=== PATIENT | female | born 1995 | race African-American/Black ===

== ENCOUNTER 2017-01-15 09:06 | Emergency (ER) | payer BC ==
[~2017-01-15] VITALS: Ht 172.7 cm; Wt 90.7 kg
[2017-01-15 09:21] VITALS: BP 110/76
--- NOTE | 2017-01-15 09:26 | PHYS DOC ---
Past Medical History Past Medical History: Asthma Additional Past Medical Histor: VON WILLIBEBRAND SYNDROME Past Surgical History: Knee Replacement Alcohol Use: None Drug Use: None Adult General Chief Complaint Chief Complaint: FLANK PAIN HPI HPI Patient is a 21 year old female presents to the emergency department with complaints of bilateral flank pain and low abdominal discomfort, urgency and frequency with urination. Reports the symptoms for 12 hours. She reports no fever, no nausea, no vomiting. She denies hematuria. Vaginal discharge or pelvic pain. She reports her last normal menstrual period was 3 weeks ago with no risk of STD. Review of Systems Review of Systems Constitutional: Denies fever or chills [] Eyes: Denies change in visual acuity, redness, or eye pain [] HENT: Denies nasal congestion or sore throat [] Respiratory: Denies cough or shortness of breath [] Cardiovascular: No additional information not addressed in HPI [] GI: Denies abdominal pain, nausea, vomiting, bloody stools or diarrhea [] : Dysuria without hematuria Musculoskeletal: Bilateral flank pain Integument: Denies rash or skin lesions [] Neurologic: Denies headache, focal weakness or sensory changes [] Endocrine: Denies polyuria or polydipsia [] Allergies Allergies Allergies Coded Allergies Type Severity Reaction Last Updated Verified No Known Drug Allergies 12/09/15 No Physical Exam Physical Exam Constitutional: Well developed, well nourished, no acute distress, non-toxic appearance. [] HENT: Normocephalic, atraumatic, bilateral external ears normal, oropharynx moist, no oral exudates, nose normal. [] Eyes: PERRLA, EOMI, conjunctiva normal, no discharge. [] Neck: Normal range of motion, no tenderness, supple, no stridor. [] Cardiovascular:Heart rate regular rhythm, no murmur [] Lungs & Thorax: Bilateral breath sounds clear to auscultation [] Abdomen: Bowel sounds normal, soft, suprapubic tenderness, no masses, no pulsatile masses. [] Skin: Warm, dry, no erythema, no rash. [] Back: No tenderness, bilateral CVA tenderness Neurologic: Alert and oriented X 3, normal motor function] Psychologic: Affect normal, judgement normal, mood normal. [] Current Patient Data Vital Signs Vital Signs Date Time Temp Pulse Resp B/P (MAP) Pulse Ox O2 Delivery O2 Flow Rate FiO2 01/15/17 09:21 98.4 90 20 110/76 (87) 97 Room Air 98.4 Lab Values Laboratory Tests Test 01/15/17 09:15 Urine Collection Type Unknown Urine Color Yellow Urine Clarity Cloudy Urine pH 6.0 Urine Specific Brohard 1.015 Urine Protein Negative mg/dL (NEG-TRACE) Urine Glucose (UA) Negative mg/dL (NEG) Urine Ketones (Stick) Negative mg/dL (NEG) Urine Blood Negative (NEG) Urine Nitrite Negative (NEG) Urine Bilirubin Negative (NEG) Urine Urobilinogen Dipstick 0.2 mg/dL (0.2 mg/dL) Urine Leukocyte Esterase Negative (NEG) Urine RBC 0 /HPF (0-2) Urine WBC Occ /HPF (0-4) Urine Squamous Epithelial Cells Many /LPF Urine Bacteria Moderate /HPF (0-FEW) Urine Mucus Marked /LPF EKG EKG [] Radiology/Procedures Radiology/Procedures [] Course & Med Decision Making Course & Med Decision Making Pertinent Labs and Imaging studies reviewed. (See chart for details) [] Dragon Disclaimer Dragon Disclaimer This electronic medical record was generated, in whole or in part, using a voice recognition dictation system. Departure Departure Impression: Primary Impression: UTI (urinary tract infection) Disposition: 01 HOME, SELF-CARE Condition: STABLE Referrals: SARANYA LOWE MD (PCP) Patient Instructions: Urinary Tract Infection Scripts Nitrofurantoin Monohyd/M-Cryst (MACROBID 100 MG CAPSULE) 100 Mg Capsule 1 CAP PO BID, #20 CAP Prov: ANN ZAMBRANO APRN 01/15/17 ANN ZAMBRANO APRN Jan 15, 2017 09:26
[2017-01-15 09:28] LABS: BILIRUBIN,URINE NEGATIVE (NEG); GLUCOSE,URINE NEGATIVE (NEG); NITRITE,URINE NEGATIVE (NEG); PROTEIN,URINE NEGATIVE (NEG-TRACE); UROBILINOGEN,URINE 0.2 mg/dL (0.2 mg/dL)
[2017-01-15 09:42] LABS: BACTERIA,URINE MODERATE /HPF (0-FEW); RBC,URINE 0 /HPF (0-2); SQUAMOUS EPITHELIAL CELL,UR MANY /LPF; WBC,URINE OCC /HPF (0-4)
[2017-01-15] MEDS ORDERED: NITR100C62 PO (09:46)
== END 2017-01-15 10:01 | disposition home or self-care (01) ==
LOC: ER 09:06
DX: N39.0 Urinary tract infection, site not specified (principal); J45.909 Unspecified asthma, uncomplicated; D68.0 Von Willebrand disease; Z96.659 Presence of unspecified artificial knee joint
CPT/HCPCS: 81001; 81025; 87086; 99284

== ENCOUNTER 2017-02-16 20:43 | Emergency (ER) | payer BC ==
[~2017-02-16] VITALS: Ht 170.2 cm; Wt 97.5 kg
[~2017-02-16 20:43] MED LIST: NITR100C62 PO
--- NOTE | 2017-02-16 21:21 | PHYS DOC ---
Past Medical History Past Medical History: Anxiety, Depression Additional Past Medical Histor: VON WILLIBEBRAND SYNDROME, Seasonal Allergies Past Surgical History: Other Additional Past Surgical Histo: Lt knee Alcohol Use: None Drug Use: None Adult General Chief Complaint Chief Complaint: ABDOMINAL PAIN HPI HPI Patient is a 21 year old female who presents with complaint of abdominal pain. Patient states that her symptoms started 2 days ago. Patient states that she started having hematemesis and bloody stools at onset of symptoms. Patient was seen at [facility]. Patient states that she had blood work done but did not have imaging at her stay. Patient states that she was told her labs looked normal and was referred to a GI specialist for outpatient follow-up. Patient states that she saw Dr. Mcadams of gastroenterology yesterday and is scheduled to have a colonoscopy in 3 days. Patient states that suddenly this evening she had very sharp upper abdominal pain. Patient states that she has also been passing black tarry stools. Patient has had no further episodes of hematemesis. Patient currently rates her pain as 8 out of 10. Patient states that the pain localizes in her epigastric area and right upper quadrant. Agent has not taken any medications today for her symptoms. Review of Systems Review of Systems Constitutional: Denies fever or chills [] Eyes: Denies change in visual acuity, redness, or eye pain [] HENT: Denies nasal congestion or sore throat [] Respiratory: Denies cough or shortness of breath [] Cardiovascular: Denies chest pain or edema [] GI: Hematemesis, upper abdominal pain, dark tarry stools [] : Denies dysuria or hematuria [] Musculoskeletal: Denies back pain or joint pain [] Integument: Denies rash or skin lesions [] Neurologic: Denies headache, focal weakness or sensory changes [] Current Medications Current Medications Current Medications Medications (Trade) Dose Ordered Sig/Isacc Start Time Stop Time Status Last Admin Dose Admin Fentanyl Citrate (Fentanyl 2ml Vial) 50 mcg PRN Q15MIN PRN 02/16/17 21:15 02/17/17 21:14 02/16/17 22:48 50 MCG Info (Do NOT chart on this entry -- for MONITORING) 1 each PRN DAILY PRN 02/16/17 22:15 02/18/17 22:14 Iohexol (Omnipaque 350 Mg/ml) 90 ml 1X ONCE 02/16/17 22:30 02/16/17 22:31 DC 02/16/17 22:22 90 ML Ondansetron HCl (Zofran) 4 mg 1X ONCE 02/16/17 21:30 02/16/17 21:31 DC 02/16/17 21:32 4 MG Pantoprazole Sodium (Protonix Vial) 80 mg 1X ONCE 02/16/17 22:00 02/16/17 22:01 DC 02/16/17 21:29 80 MG Sodium Chloride 1,000 ml @ 1,000 mls/hr Q1H 02/16/17 21:30 02/16/17 22:29 DC 02/16/17 21:26 1,000 MLS/HR Allergies Allergies Allergies Coded Allergies Type Severity Reaction Last Updated Verified No Known Drug Allergies 12/09/15 No Physical Exam Physical Exam Constitutional: Alert, afebrile, appears in moderate discomfort. [] HENT: Normocephalic, atraumatic, bilateral external ears normal, oropharynx moist, no oral exudates, nose normal. [] Eyes: PERRLA, EOMI, conjunctiva normal, no discharge. [] Neck: Normal range of motion, no tenderness, supple, no stridor. [] Cardiovascular:Heart rate regular rhythm, no murmur [] Lungs & Thorax: Bilateral breath sounds clear to auscultation [] Abdomen: Bowel sounds normal, soft, epigastric and right upper quadrant tenderness to palpation with guarding, no rebound tenderness, no masses, no pulsatile masses. [] Skin: Warm, dry, no erythema, no rash. [] Back: No tenderness, no CVA tenderness. [] Extremities: No tenderness, no cyanosis, no clubbing, ROM intact, no edema. [] Neurologic: Alert and oriented X 3, normal motor function, normal sensory function, no focal deficits noted. [] Current Patient Data Vital Signs Vital Signs Date Time Temp Pulse Resp B/P (MAP) Pulse Ox O2 Delivery O2 Flow Rate FiO2 02/16/17 23:25 64 16 118/57 (77) 96 Room Air 02/16/17 20:50 98.6 98.6 Lab Values Laboratory Tests Test 02/16/17 20:47 02/16/17 21:20 02/16/17 21:25 Urine Collection Type Unknown Urine Color Jess Urine Clarity Clear Urine pH 6.0 Urine Specific Hope >=1.030 Urine Protein Negative mg/dL (NEG-TRACE) Urine Glucose (UA) Negative mg/dL (NEG) Urine Ketones (Stick) Negative mg/dL (NEG) Urine Blood Negative (NEG) Urine Nitrite Negative (NEG) Urine Bilirubin Small (NEG) Urine Urobilinogen Dipstick 1.0 mg/dL (0.2 mg/dL) Urine Leukocyte Esterase Negative (NEG) Urine RBC 0 /HPF (0-2) Urine WBC 1-4 /HPF (0-4) Urine Squamous Epithelial Cells Mod /LPF Urine Bacteria Few /HPF (0-FEW) Urine Mucus Marked /LPF White Blood Count 12.2 x10^3/uL (4.0-11.0) H Red Blood Count 4.28 x10^6/uL (3.50-5.40) Hemoglobin 12.4 g/dL (12.0-15.5) Hematocrit 36.2 % (36.0-47.0) Mean Corpuscular Volume 84 fL (79-100) Mean Corpuscular Hemoglobin 29 pg (25-35) Mean Corpuscular Hemoglobin Concent 34 g/dL (31-37) Red Cell Distribution Width 13.2 % (11.5-14.5) Platelet Count 185 x10^3/uL (140-400) Neutrophils (%) (Auto) 60 % (31-73) Lymphocytes (%) (Auto) 31 % (24-48) Monocytes (%) (Auto) 9 % (0-9) Eosinophils (%) (Auto) 1 % (0-3) Basophils (%) (Auto) 0 % (0-3) Neutrophils # (Auto) 7.2 x10^3uL (1.8-7.7) Lymphocytes # (Auto) 3.8 x10^3/uL (1.0-4.8) Monocytes # (Auto) 1.0 x10^3/uL (0.0-1.1) Eosinophils # (Auto) 0.1 x10^3/uL (0.0-0.7) Basophils # (Auto) 0.1 x10^3/uL (0.0-0.2) Prothrombin Time 13.1 SEC (11.7-14.0) Prothrombin Time INR 1.1 (0.8-1.1) PTT 28 SEC (24-38) Sodium Level 139 mmol/L (136-145) Potassium Level 3.8 mmol/L (3.5-5.1) Chloride Level 105 mmol/L (98-107) Carbon Dioxide Level 26 mmol/L (21-32) Anion Gap 8 (6-14) Blood Urea Nitrogen 11 mg/dL (7-20) Creatinine 1.0 mg/dL (0.6-1.0) Estimated GFR (Cockcroft-Gault) 83.9 BUN/Creatinine Ratio 11 (6-20) Glucose Level 115 mg/dL (70-99) H Calcium Level 8.9 mg/dL (8.5-10.1) Total Bilirubin 0.3 mg/dL (0.2-1.0) Aspartate Amino Transferase (AST) 27 U/L (15-37) Alanine Aminotransferase (ALT) 32 U/L (14-59) Alkaline Phosphatase 90 U/L (46-116) Total Protein 7.1 g/dL (6.4-8.2) Albumin 3.6 g/dL (3.4-5.0) Albumin/Globulin Ratio 1.0 (1.0-1.7) Lipase 106 U/L (73-393) Stool Occult Blood Negative (NEG) Laboratory Tests 02/16/17 21:20 Laboratory Tests 02/16/17 21:20 EKG EKG Not performed [] Radiology/Procedures Radiology/Procedures [facility] [address] [place] [address] IMAGING REPORT Signed PATIENT: MEGHAN BRODY ACCOUNT: [id number] : 1995 LOCATION: ER AGE: 21 SEX: F EXAM STATUS: REG ER ORD. PHYSICIAN: NENA HAWKINS MD REASON: GI Bleeding, Upper abdominal pain PROCEDURE: CT ANGIOGRAPHY ABD AND PELVIS CTA of the abdomen and pelvis without and with contrast 02/16/2017 CLINICAL HISTORY: Abdominal pain for 2 days with vomiting blood and black tarry stools. History of Von Willebrand disease. TECHNIQUE: Unenhanced contiguous, 3 mm axial sections were obtained through abdomen and pelvis. After the intravenous administration of 90 cc of Omnipaque 350, contiguous, 0.625 mm axial sections were obtained through abdomen and pelvis. Multiplanar 3-D MIP reconstructed images were obtained. One or more of the following individualized dose reduction techniques were utilized for this study: 1. Automated exposure control. 2. Adjustment of the mA and/or kV according to patient size. 3. Use of iterative reconstruction technique. FINDINGS: Images through the lung bases demonstrate minimal dependent subsegmental atelectasis bilaterally. The unenhanced images through the abdomen demonstrate no renal or ureteral calculus. No pathologic calcification is seen. The liver parenchyma has a decreased attenuation consistent with mild fatty infiltration. The spleen, pancreas, adrenal glands and kidneys are within normal limits. The abdominal aorta tapers normally. The gallbladder is contracted. No free fluid or free air is seen within the abdomen. There is no evidence of bowel obstruction. Air and stool is seen throughout the colon. The appendix is well-visualized and is within normal limits. Images through the pelvis demonstrate the urinary bladder distended with urine. A rounded low-attenuation lesion is seen in the right ovary which measures 3 cm in size. This likely represents a right ovarian cyst. A small amount of free fluid is seen within the pelvis. CTA images demonstrate that the abdominal aorta tapers normally. Solitary renal arteries are seen which are within normal limits. The origins of the celiac trunk, superior mesenteric artery and inferior mesenteric artery are within normal limits. The common iliac arteries, external iliac arteries and internal iliac arteries and their branches are within normal limits. No area of stenosis or occlusion is seen. No extravasation of contrast is seen to suggest CT evidence of active bleeding. Minimal S-shaped curvature of the thoracolumbar spine is seen. IMPRESSION: 1. 3 cm probable right ovarian cyst. Small amount of free fluid is seen within the pelvis. 2. No acute abnormality is seen involving the abdomen and pelvis. There is no CT evidence of active GI bleeding. Electronically signed by: Brent Hodges MD (02/16/2017 11:30 PM) [facility] DICTATED and SIGNED BY: BRENT HODGES MD DATE: 02/16/17 [id number] CC: NENA HAWKINS MD; KENNETH BARNEY DO ~ [] Course & Med Decision Making Course & Med Decision Making Pertinent Labs and Imaging studies reviewed. (See chart for details) Patient's labwork unremarkable. No evidence of acute GI bleeding is present on today's visit. The patient's CT scan did not show any acute cause for patient's pain symptoms. The patient was treated with IV fluids, fentanyl, Protonix, and Zofran. On reevaluation, patient states her symptoms have improved at this time. The patient is scheduled to have endoscopy done in 3 days. I recommended that the patient keep this appointment as scheduled. The patient will be provided with prescriptions of [place] and Zofran for symptomatic control as outpatient. Advised return emergency department for any worsening symptoms. Patient voiced understanding and in agreement with treatment plan. Dragon Disclaimer Dragon Disclaimer This electronic medical record was generated, in whole or in part, using a voice recognition dictation system. Departure Departure Impression: Primary Impression: Abdominal pain Disposition: HOME, SELF-CARE Condition: IMPROVED Referrals: KENNETH BARNEY DO (PCP) Patient Instructions: Abdominal Pain (Nonspecific) Additional Instructions: Follow-up with Dr. Mcadams in 3 days as scheduled for endoscopy. Return to the emergency department for any worsening symptoms. Scripts Ondansetron (ZOFRAN ODT) 4 Mg Tab.rapdis 1 TAB SL Q8HRS Y for NAUSEA/VOMITING, #20 TAB Prov: NENA HAWKINS MD 02/16/17 Hydrocodone/Apap 5-325 (NORCO 5-325 TABLET) 1 Each Tablet 1-2 TAB PO Q4-6HRS Y for PAIN, #15 TAB Prov: NENA HAWKINS MD 02/16/17 Problem Qualifiers Primary Impression: Abdominal pain Abdominal location: epigastric Qualified Codes: R10.13 - Epigastric pain NENA HAWKINS MD Feb 16, 2017 21:21
[2017-02-16 21:26] LABS: BILIRUBIN,URINE SMALL (NEG); GLUCOSE,URINE NEGATIVE (NEG); NITRITE,URINE NEGATIVE (NEG); PROTEIN,URINE NEGATIVE (NEG-TRACE)
[2017-02-16 21:27] LABS: BASO # 0.1 x10^3/uL (0.0-0.2); BASO % 0 % (0-3); EOS % 1 % (0-3); HEMATOCRIT 36.2 % (36.0-47.0); HEMOGLOBIN 12.4 g/dL (12.0-15.5); LYMPH # 3.8 x10^3/uL (1.0-4.8); LYMPH % 31 % (24-48); MEAN CORPUSCULAR HEMOGLOBIN 29 pg (25-35); MEAN CORPUSCULAR HGB CONC 34 g/dL (31-37); MEAN CORPUSCULAR VOLUME 84 fL (79-100); MONO % 9 % (0-9); NEUT % 60 % (31-73); PLATELET COUNT 185 x10^3/uL (140-400); RED BLOOD COUNT 4.28 x10^6/uL (3.50-5.40); RED CELL DISTRIBUTION WIDTH 13.2 % (11.5-14.5); WHITE BLOOD COUNT 12.2 x10^3/uL (4.0-11.0)
[2017-02-16] MEDS ORDERED: ONDANSETRON PF 4 MG/2 ML VIAL. IV ONE (21:30)
[2017-02-16] MEDS ORDERED: IV NORMAL SALINE 1000ML BAG 1,000 ML IV SCH (21:30)
[2017-02-16] MEDS: fentaNYL PF VIAL 100 MCG/2 ML VIAL IV PRN ×2 (21:33→22:48)
[2017-02-16 21:40] LABS: CALCIUM 8.9 mg/dL (8.5-10.1); GFR 83.9; POTASSIUM 3.8 mmol/L (3.5-5.1)
[2017-02-16 21:44] LABS: BACTERIA,URINE FEW /HPF (0-FEW); RBC,URINE 0 /HPF (0-2); SQUAMOUS EPITHELIAL CELL,UR MOD /LPF
[2017-02-16 21:46] LABS: ALBUMIN 3.6 g/dL (3.4-5.0); TOTAL BILIRUBIN 0.3 mg/dL (0.2-1.0); TOTAL PROTEIN 7.1 g/dL (6.4-8.2)
[2017-02-16 21:47] LABS: NEG OBC FOB NEG; POS OBC FOB POS
[2017-02-16 21:51] LABS: INR 1.1 (0.8-1.1); PROTHROMBIN TIME PATIENT 13.1 SEC (11.7-14.0)
[2017-02-16] MEDS ORDERED: PANTOPRAZOLE IV PUSH 40 MG VIAL. IVP ONE (22:00)
[2017-02-16] MEDS ORDERED: CONTRAST GIVEN MC PRN (22:15)
[2017-02-16] MEDS ORDERED: IOHEXOL 350 MG/ML 100 ML VIAL. IV ONE (22:30)
--- NOTE | 2017-02-16 23:33 | RAD ---
CTA of the abdomen and pelvis without and with contrast 02/16/2017 CLINICAL HISTORY: Abdominal pain for 2 days with vomiting blood and black tarry stools. History of Von Willebrand disease. TECHNIQUE: Unenhanced contiguous, 3 mm axial sections were obtained through abdomen and pelvis. After the intravenous administration of 90 cc of Omnipaque 350, contiguous, 0.625 mm axial sections were obtained through abdomen and pelvis. Multiplanar 3-D MIP reconstructed images were obtained. One or more of the following individualized dose reduction techniques were utilized for this study: 1. Automated exposure control. 2. Adjustment of the mA and/or kV according to patient size. 3. Use of iterative reconstruction technique. FINDINGS: Images through the lung bases demonstrate minimal dependent subsegmental atelectasis bilaterally. The unenhanced images through the abdomen demonstrate no renal or ureteral calculus. No pathologic calcification is seen. The liver parenchyma has a decreased attenuation consistent with mild fatty infiltration. The spleen, pancreas, adrenal glands and kidneys are within normal limits. The abdominal aorta tapers normally. The gallbladder is contracted. No free fluid or free air is seen within the abdomen. There is no evidence of bowel obstruction. Air and stool is seen throughout the colon. The appendix is well-visualized and is within normal limits. Images through the pelvis demonstrate the urinary bladder distended with urine. A rounded low-attenuation lesion is seen in the right ovary which measures 3 cm in size. This likely represents a right ovarian cyst. A small amount of free fluid is seen within the pelvis. CTA images demonstrate that the abdominal aorta tapers normally. Solitary renal arteries are seen which are within normal limits. The origins of the celiac trunk, superior mesenteric artery and inferior mesenteric artery are within normal limits. The common iliac arteries, external iliac arteries and internal iliac arteries and their branches are within normal limits. No area of stenosis or occlusion is seen. No extravasation of contrast is seen to suggest CT evidence of active bleeding. Minimal S-shaped curvature of the thoracolumbar spine is seen. IMPRESSION: 1. 3 cm probable right ovarian cyst. Small amount of free fluid is seen within the pelvis. 2. No acute abnormality is seen involving the abdomen and pelvis. There is no CT evidence of active GI bleeding. Electronically signed by: Brent Hodges MD (02/16/2017 11:30 PM) [facility]
[2017-02-16] MEDS ORDERED: ONDA4TAB10 SL (23:51)
[2017-02-16] MEDS ORDERED: HYDR-971 PO (23:51)
[2017-02-16 23:59] VITALS: BP 127/79
== END 2017-02-17 00:01 | disposition home or self-care (01) ==
LOC: ER 20:43
DX: R10.13 Epigastric pain (principal); K92.0 Hematemesis; K92.1 Melena; F32.9 Major depressive disorder, single episode, unspecified; F41.9 Anxiety disorder, unspecified; D68.0 Von Willebrand disease
CPT/HCPCS: 36415; 74174; 80053; 81001; 81025; 82274; 83690; 85027; 85610; 85730; 86850; 86900; 86901; 96361; 96374; 96375; 99285; C9113; J2405; J3010; J7030; Q9967; 96376

== ENCOUNTER → 2017-03-14 | Outpatient (CLI) | payer BC ==
[2017-02-16 23:59] VITALS: BP 127/79
[~2017-03-14] VITALS: Ht 172.7 cm; Wt 97.5 kg
[~2017-03-14] MED LIST changes: +HYDR-971 PO; +ONDA4TAB10 SL; +SINCALIDE 2 MCG in IV NORMAL SALINE 50ML 30 ML IV ONE
--- NOTE | 2017-03-14 13:45 | RAD ---
Radionuclide hepatobiliary scan, 03/14/2017: History: Right upper quadrant pain Following IV injection of 5.5 mCi of technetium 99m Choletec there was prompt uptake of the radionuclide from the blood stream by the liver. Activity is present in the bile ducts and gallbladder at 15 minutes. Small bowel activity is evident at 30 minutes. Additional imaging of the gallbladder was then performed following IV injection of 2.0 mcg of cholecystokinin. The gallbladder ejection fraction was calculated at 46%. IMPRESSION: 1. No evidence of cystic duct or common bile duct obstruction. 2. The gallbladder ejection fraction is 46%.
== END | disposition home or self-care (01) ==
LOC: NM 09:41
PROVIDERS: ATTEND Emergency Medicine
DX: R10.11 Right upper quadrant pain (principal)
CPT/HCPCS: 78226; 96374; 96375; A9537; J2805

== ENCOUNTER → 2017-04-09 | Outpatient (CLI) | payer BC ==
[~2017-04-09] MED LIST changes: -SINCALIDE 2 MCG in IV NORMAL SALINE 50ML 30 ML IV ONE
--- NOTE | 2017-04-09 10:32 | RAD ---
Exam performed: Nuclear medicine gastric emptying study. History: Chronic Abdominal pain. Date of service: 04/09/17. Comparison: None available Discussion: Patient was administered 2.2 mCi of technetium 99 M sulfur ovoid and sequential images of the abdomen are obtained. After a expansile. Of 52 minutes, there is very slow portion of gastric contents into the small bowel. Time to half emptying of the stomach measures 115 minutes. Impression: Significantly increased time to half emptying of the stomach consistent with gastroparesis or gastric outlet obstruction. Correlate with endoscopy findings
== END | disposition home or self-care (01) ==
LOC: NM 07:34
PROVIDERS: ATTEND Internal Medicine Gastroenterology
DX: K31.84 Gastroparesis (principal); K31.1 Adult hypertrophic pyloric stenosis; G89.29 Other chronic pain; J45.909 Unspecified asthma, uncomplicated
CPT/HCPCS: 78264; A9541

== ENCOUNTER 2017-04-30 08:07 | Day surgery (SDC) | payer BC ==
[~2017-04-30] VITALS: Ht 175.3 cm; Wt 114.3 kg
[~2017-04-30 08:07] MED LIST changes: +ATOM80CA PO; +FEXO180T81 PO; +PRAZ2CAP PO; +TRAZ50TA15 PO
[2017-04-30] MEDS ORDERED: PROAIR HFA8.5 GM INH (08:41)
[2017-04-30] MEDS ORDERED: pro air (08:41)
[2017-04-30] MEDS ORDERED: LIDOCAINE 2% PF Vial for OR 5 ML VIAL. ONE (08:52)
[2017-04-30] MEDS ORDERED: ONDANSETRON PF 4 MG/2 ML VIAL. ONE (08:52)
[2017-04-30] MEDS ORDERED: DESFLURANE 61 TO 120 MINUTES IH ONE ×2 (08:52→08:53)
[2017-04-30] MEDS ORDERED: MIDAZOLAM HCL/PF 2 MG/2 ML VIAL. ONE (08:52)
[2017-04-30] MEDS ORDERED: PROPOFOL 20 ML IV ONE (08:52)
[2017-04-30] MEDS ORDERED: DEXAMETHASONE SOD PHOS 20 MG/5 ML VIAL. ONE (08:52)
[2017-04-30] MEDS ORDERED: fentaNYL PF VIAL 100 MCG/2 ML VIAL ONE (08:52)
[2017-04-30] MEDS ORDERED: SUCCINYLCHOLINE 200 MG/10 ML VIAL. ONE (08:53)
[2017-04-30] MEDS ORDERED: IV RINGERS,LACTATED 1000ML 1,000 ML IV SCH ×2 (08:56→10:49)
[2017-04-30] MEDS ORDERED: fentaNYL PF VIAL 100 MCG/2 ML VIAL IV PRN ×3 (09:00→11:00)
[2017-04-30] MEDS ORDERED: LIDOCAINE 1% 1 ML SYRINGE. ID PRN ×2 (09:00→11:00)
[2017-04-30] MEDS ORDERED: MIDAZOLAM HCL/PF 2 MG/2 ML VIAL. IV PRN (09:00)
[2017-04-30] MEDS ORDERED: ROCURONIUM 100 MG/10 ML VIAL. ONE (09:20)
[2017-04-30] MEDS ORDERED: BUPIVACAINE-EPI 0.25%-1:200000 MPF 30 ML VIAL. ONE (09:32)
[2017-04-30] MEDS ORDERED: IOHEXOL 300 MG/ML 50 ML VIAL. ONE (09:32)
[2017-04-30] MEDS ORDERED: SURGICEL HEMOSTAT 4X8 EACH. ONE (09:32)
[2017-04-30] MEDS ORDERED: GLYCOPYRROLATE 1 MG/5 ML VIAL. ONE (10:08)
[2017-04-30] MEDS ORDERED: NEOSTIGMINE 10 MG/10 ML VIAL. ONE (10:08)
--- NOTE | 2017-04-30 10:29 | PDOC4 ---
Operative Note Operative Note Date: 04/30/2017 Preoperative diagnosis biliary dyskinesia Operative diagnosis: Same Procedure: Laparoscopic cholecystectomy Surgeon: Chalo Specimen: Gallbladder Dictation: Patient is a 21-year-old female who's had right upper quadrant abdominal pain for several months diarrhea and vomiting especially after eating. Undergone ultrasound and HIDA scan her ejection fraction was 40% with recurrence of her symptoms with Kinevac injection EGD was normal. Procedure of lap scopic cholecystectomy was explained to the patient in detail was benefits were also discussed including bleeding infection injury to intra-abdominal contents possibly necessitating further or open operations also discussed the possibility that it may not alleviate all of her symptoms. She seemed understanding and wished to proceed with surgery. Patient was taken to the operating room placed in the supine position general anesthesia was initiated once patient was asleep and intubated her abdomen was prepped and draped in the usual sterile fashion using ChloraPrep. An area of the umbilicus was injected with quarter percent Marcaine with epinephrine incision was made 11 blade scalpel and a varies needle was placed, a pneumoperitoneum was achieved. At this 0.11 mm port was placed and a Source MDx camera was placed within the abdomen which was inspected no other at maladies were noted noted that there quite a few adhesions to the gallbladder from the omentum. At this time 3, 5 mm ports were placed under direct visualization one in the epigastrium and 2 in the right upper quadrant the dome of the gallbladder was grasped retracted cephalad the infundibulum gallbladder was grasped retracted laterally the adhesions from the omentum were taken down bluntly dissection exposing the triangle. Adherent tissues the triangle are taken down exposing the cystic duct and cystic artery both were doubly clipped and transected the gallbladder was taken off the liver with hook left cautery placed in Endo Catch bag and removed from the umbilicus right upper quadrant was irrigated and suctioned dry hemostasis deemed to be appropriate and the pneumoperitoneum was reduced. All ports removed fascial defect of the umbilicus closed [id number] 0 Vicryl suture and the skin was approximated all port sites for septic or Monocryl mass all Steri-Strips and Band-Aids were applied as dressing. Patient was awakened and extubated in the operating room and taken to recovery in stable condition. Sponge instrument and needle counts listed as correct estimated blood loss 10 mL. TREVER SHAW MD Apr 30, 2017 10:29
--- NOTE | 2017-04-30 10:30 | DISCH ---
DISCHARGE INSTRUCTIONS Condition on Discharge Condition on Discharge: Stable Activity After Discharge Activity Instructions for Disc: Avoid exertion Other activity instructions: No lifting >20lbs for 2 weeks Diet after Discharge Diet after Discharge: Low Fat Wound Incision Care Other wound/incision instructi: May shower in 24 hours Contacting the after DC Call your doctor for: If your condition worsens Follow-Up Follow up with: Dr Shaw in 2 weeks TREVER SHAW MD Apr 30, 2017 10:30
[2017-04-30] MEDS ORDERED: PROCHLORPERAZINE 10 MG/2 ML VIAL. ONE (10:36)
[2017-04-30] MEDS: fentaNYL PF VIAL 100 MCG/2 ML VIAL IV PRN ×4 (10:46→11:38)
[2017-04-30] MEDS ORDERED: MORPHINE SULFATE 2 MG/ML DISP.SYRIN. IV PRN (11:00)
[2017-04-30] MEDS ORDERED: PROCHLORPERAZINE 10 MG/2 ML VIAL. IV PRN (11:00)
[2017-04-30] MEDS ORDERED: HYDROmorphone 2 MG/ML VIAL IV PRN (11:00)
[2017-04-30] MEDS ORDERED: ONDANSETRON PF 4 MG/2 ML VIAL. IV PRN (11:00)
[2017-04-30] MEDS ORDERED: oxyCODONE/APAP 5/325 1 TAB TABLET PO ONE (11:15)
[2017-04-30 12:15] VITALS: BP 100/53
[2017-04-30 13:31] LABS: NEG OBC UR NEG; POS OBC UR POS
--- NOTE | 2017-05-02 11:02 | PATHOLOGY ---
PATHOLOGY REPORT * * * * * * * * FINAL DIAGNOSIS: Gallbladder, laparoscopic cholecystectomy: - Cholesterolosis. - Chronic cholecystitis. COMMENT: There are no calculi identified within the gallbladder lumen or specimen container. There is no evidence of malignancy. (JPM:mml; 05/02/2017) REPORT ELECTRONICALLY SIGNED BY: Sean Jones M.D. DATE/TIME: 05/02/2017 11:01 * * * * * * * * GROSS PATHOLOGY: Received in formalin labeled "Rashida Gupta, gallbladder and contents," is a 7.3 x 3.3 x 1.3 cm, intact gallbladder with yellow hankins serosal surfaces. Opening the gallbladder reveals acosta brown, velvety mucosa with focal acosta yellow deposits, suggestive of cholesterolosis and an average wall thickness of 0.3 cm. Calculi are not present and no masses are noted grossly. Early Morning Babysitter sections from the body and fundus are submitted along with the proximal margin in cassette A1. (JPM; 04/30/17) INITIAL CPT CODE(S): A; 56940 Professional services [place] [address] Technical services performed by [facility] at [address] [place] [address] [address], [place] [address]. SPECIMEN(S) RECEIVED: A.Gallbladder and contents CLINICAL HISTORY: Biliary dyskinesia PATIENT: RASHIDA GUPTA /AGE: 4 1995 (Age: 21) PATIENT #: [id number] CASE #: SPECIMEN COLLECTION DATE: 04/30/2017 SPECIMEN RECEIVED DATE: 04/30/2017 [facility] [place] [address] - PHONE: [phone] * * * END OF REPORT * * *
== END 2017-04-30 12:33 | disposition home or self-care (01) ==
LOC: SURG 08:07
PROVIDERS: ATTEND Surgery
DX: K82.8 Other specified diseases of gallbladder (principal); J45.909 Unspecified asthma, uncomplicated; E66.9 Obesity, unspecified; Z68.22 Body mass index [BMI] 22.0-22.9, adult; K21.9 Gastro-esophageal reflux disease without esophagitis; F90.1 Attention-deficit hyperactivity disorder, predominantly hyperactive type; F41.9 Anxiety disorder, unspecified; F32.9 Major depressive disorder, single episode, unspecified; Z72.89 Other problems related to lifestyle; Z87.440 Personal history of urinary (tract) infections; Z87.891 Personal history of nicotine dependence; Z91.018 Allergy to other foods
CPT/HCPCS: 47562; 81025; 88304; C1782; J0330; J0690; J0780; J1100; J2250; J2405; J2704; J2710; J3010; J3490; J7030; J7120; Q9967; J2001

== ENCOUNTER 2019-04-06 16:31 | Emergency (ER) | payer BC, OTHER ==
[~2019-04-06] VITALS: Ht 172.7 cm; Wt 99.8 kg
[~2019-04-06 16:31] MED LIST changes: +ALBU2.5V8 INH; +HYDR-3164 PO; -HYDR-971 PO; +TRAZ-118 PO; -TRAZ50TA15 PO; +pro air
[2019-04-06] MEDS ORDERED: IV NORMAL SALINE 1000ML BAG 1,000 ML IV ONE (17:45)
--- NOTE | 2019-04-06 17:47 | PHYS DOC ---
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 The patient states she was at work this morning and checked her blood sugar was 62 ass ociated. Motor and crackers and orange juice and went to 1 27/04/45. The patient and states that she began feeling dizzy, and lightheaded around 245 checked her blood sugar again was 120. The patient states that she is not a diabetic. States that then she checked her blood pressure around the same time and it was 172/120. He took one reading and blood pressure is not that elevated in the ER. The patient states then on the way to the ER she had this episode was she became unresponsive for 10 minutes and her eyes were moving back and forth. States she came to and could not talk. I have a history of seizures. The patient has a history of anxiety and depression, this is a 1 month anniversary for dad passing away. (NUBIA SHIRLEY APRN) Review of Systems Review of Systems Constitutional: Denies fever or chills [] Eyes: Denies change in visual acuity, redness, or eye pain [] HENT: Denies nasal congestion or sore throat [] Respiratory: Denies cough or shortness of breath [] Cardiovascular: No additional information not addressed in HPI [] GI: Denies abdominal pain, nausea, vomiting, bloody stools or diarrhea [] : Denies dysuria or hematuria [] Musculoskeletal: Denies back pain or joint pain [] Integument: Denies rash or skin lesions [] Neurologic: Denies headache, focal weakness or sensory changes [] Endocrine: Denies polyuria or polydipsia [] Complete systems were reviewed and found to be within normal limits, except as documented in this note. (NUBIA SHIRLEY APRN) Current Medications Current Medications Current Medications Medications (Trade) Dose Ordered Sig/Isacc Start Time Stop Time Status Last Admin Dose Admin Sodium Chloride 1,000 ml @ 1,000 mls/hr 1X ONCE 04/06/19 17:45 04/06/19 18:44 DC 04/06/19 18:37 1,000 MLS/HR (TACHO EMERY MD) Allergies Allergies Allergies Coded Allergies Type Severity Reaction Last Updated Verified coconut Allergy Severe ANAPHYLAXIS 04/30/17 Yes tomato Allergy Intermediate BROKE OUT WITH RASH 04/30/17 Yes (TACHO EMERY MD) Physical Exam Physical Exam Constitutional: Well developed, well nourished, no acute distress, non-toxic appearance. [] HENT: Normocephalic, atraumatic, bilateral external ears normal, oropharynx moist, no oral exudates, nose normal. [] Eyes: PERRLA, EOMI, conjunctiva normal, no discharge. [] Neck: Normal range of motion, no tenderness, supple, no stridor. [] Cardiovascular:Heart rate regular rhythm, no murmur [] Lungs & Thorax: Bilateral breath sounds clear to auscultation [] Abdomen: Bowel sounds normal, soft, no tenderness, no masses, no pulsatile masses. [] Skin: Warm, dry, no erythema, no rash. [] Back: No tenderness, no CVA tenderness. [] Extremities: No tenderness, no cyanosis, no clubbing, ROM intact, no edema. [] Neurologic: Alert and oriented X 3, normal motor function, normal sensory function, no focal deficits noted. [] Psychologic: Affect normal, judgement normal, mood normal. [] (NUBIA SHIRLEY APRN) Current Patient Data Vital Signs Vital Signs Date Time Temp Pulse Resp B/P (MAP) Pulse Ox O2 Delivery O2 Flow Rate FiO2 04/06/19 20:00 70 123/77 (92) 94 Room Air 04/06/19 18:30 18 04/06/19 17:35 98.1 98.1 (TACHO EMERY MD) Lab Values Laboratory Tests Test 04/06/19 17:14 04/06/19 17:20 04/06/19 17:40 04/06/19 17:45 Glucose (Fingerstick) 77 mg/dL (70-99) White Blood Count 8.9 x10^3/uL (4.0-11.0) Red Blood Count 4.79 x10^6/uL (3.50-5.40) Hemoglobin 14.3 g/dL (12.0-15.5) Hematocrit 41.0 % (36.0-47.0) Mean Corpuscular Volume 85 fL (79-100) Mean Corpuscular Hemoglobin 30 pg (25-35) Mean Corpuscular Hemoglobin Concent 35 g/dL (31-37) Red Cell Distribution Width 13.7 % (11.5-14.5) Platelet Count 252 x10^3/uL (140-400) Neutrophils (%) (Auto) 58 % (31-73) Lymphocytes (%) (Auto) 32 % (24-48) Monocytes (%) (Auto) 7 % (0-9) Eosinophils (%) (Auto) 2 % (0-3) Basophils (%) (Auto) 1 % (0-3) Neutrophils # (Auto) 5.2 x10^3/uL (1.8-7.7) Lymphocytes # (Auto) 2.9 x10^3/uL (1.0-4.8) Monocytes # (Auto) 0.7 x10^3/uL (0.0-1.1) Eosinophils # (Auto) 0.2 x10^3/uL (0.0-0.7) Basophils # (Auto) 0.1 x10^3/uL (0.0-0.2) Lactic Acid Level 0.4 mmol/L (0.4-2.0) Urine Collection Type Unknown Urine Color Straw Urine Clarity Clear Urine pH 6.0 Urine Specific [place] <=1.005 Urine Protein Negative mg/dL (NEG-TRACE) Urine Glucose (UA) Negative mg/dL (NEG) Urine Ketones (Stick) Negative mg/dL (NEG) Urine Blood Negative (NEG) Urine Nitrite Negative (NEG) Urine Bilirubin Negative (NEG) Urine Urobilinogen Dipstick 0.2 mg/dL (0.2 mg/dL) Urine Leukocyte Esterase Negative (NEG) Urine RBC 0 /HPF (0-2) Urine WBC 0 /HPF (0-4) Urine Squamous Epithelial Cells Few /LPF Urine Bacteria Few /HPF (0-FEW) Test 04/06/19 17:52 04/06/19 18:31 POC Urine HCG, Qualitative Hcg negative (Negative) Sodium Level 138 mmol/L (136-145) Potassium Level 4.1 mmol/L (3.5-5.1) Chloride Level 104 mmol/L (98-107) Carbon Dioxide Level 24 mmol/L (21-32) Anion Gap 10 (6-14) Blood Urea Nitrogen 12 mg/dL (7-20) Creatinine 0.9 mg/dL (0.6-1.0) Estimated GFR (Cockcroft-Gault) 93.1 BUN/Creatinine Ratio 13 (6-20) Glucose Level 82 mg/dL (70-99) Calcium Level 9.2 mg/dL (8.5-10.1) Total Bilirubin 0.4 mg/dL (0.2-1.0) Aspartate Amino Transferase (AST) 25 U/L (15-37) Alanine Aminotransferase (ALT) 30 U/L (14-59) Alkaline Phosphatase 101 U/L (46-116) Troponin I Quantitative < 0.017 ng/mL (0.000-0.055) Total Protein 8.1 g/dL (6.4-8.2) Albumin 4.1 g/dL (3.4-5.0) Albumin/Globulin Ratio 1.0 (1.0-1.7) Laboratory Tests 04/06/19 17:20 Laboratory Tests 04/06/19 18:31 (TACHO EMERY MD) EKG EKG EKG interpreted by Dr. Barrientos Sinus rate of 88, No STEMI.[] (NUBIA SHIRLEY APRN) Radiology/Procedures Radiology/Procedures [facility] [address] [place] [address] IMAGING REPORT Signed PATIENT: MEGHAN BRODY ACCOUNT: [id number] : 1995 LOCATION: ER AGE: 23 SEX: F EXAM STATUS: REG ER ORD. PHYSICIAN: NUBIA SHIRLEY APRN REASON: seizure PROCEDURE: CT HEAD WO CONTRAST EXAM: CT HEAD WITHOUT CONTRAST. HISTORY: Seizures. TECHNIQUE: Computed tomography of the head was performed without intravenous contrast. COMPARISON: None. FINDINGS: There is no intracranial hemorrhage. Win-white differentiation is preserved. The ventricles are normal in size and position. There is a small mucus retention cyst in the left maxillary sinus. The orbits are unremarkable. The temporal bones are unremarkable. The calvarium reveals no suspicious lesions. IMPRESSION: 1. No acute intracranial findings. MRI is more sensitive if there is persistent concern. *One or more of the following individualized dose reduction techniques were utilized for this examination: 1. Automated exposure control. 2. Adjustment of the mA and/or kV according to patient size. 3. Use of iterative reconstruction technique. Electronically signed by: Jacob Mercado MD (04/06/2019 6:32 PM) [facility] DICTATED and SIGNED BY: JU MERCADO MD [][facility] [address] [place] [address] IMAGING REPORT Signed PATIENT: MEGHAN BRODY ACCOUNT: [id number] : 1995 LOCATION: ER AGE: 23 SEX: F EXAM STATUS: REG ER ORD. PHYSICIAN: NUBIA SHIRLEY APRN REASON: palpitations, cp PROCEDURE: CHEST PA & LATERAL Exam: Chest 2 views INDICATION: Palpitations TECHNIQUE: Frontal and lateral views the chest Comparisons: None FINDINGS: The cardiomediastinal silhouette and pulmonary vessels are within normal limits. The lung and pleural spaces are clear. IMPRESSION: No acute cardiopulmonary process. Electronically signed by: Anika Rausch MD (04/06/2019 6:18 PM) [facility] DICTATED and SIGNED BY: ANIKA RAUSCH MD DATE: 04/06/191817 (NUBIA SHIRLEY APRN) Course & Med Decision Making Course & Med Decision Making Pertinent Labs and Imaging studies reviewed. (See chart for details) Since the patient has given symptoms of seizures, syncope, and is also stating she has chest pain I will CT of head, lactic acid, labs, and with get chest x- ray. I will give fluids in ER. Lactic is negative. Does not appears to have had seizure. Imaging and labs are unremarkable. Will d/c home. Appears to have had anxiety attack. (NUBIA SHIRLEY APRN) Course & Med Decision Making I was not involved in the care of this patient after 1800 on 04/06/2019. (TACHO EMERY MD) Dragon Disclaimer Dragon Disclaimer This electronic medical record was generated, in whole or in part, using a voice recognition dictation system. (NUBIA SHIRLEY APRN) Departure Departure Impression: Primary Impression: Panic attack Disposition: 01 HOME, SELF-CARE Condition: STABLE Referrals: KENNETH BARNEY DO (PCP) Patient Instructions: Anxiety and Panic Attacks Additional Instructions: Thank you for visiting [facility]. We appreciate you trusting us with your care. If any additional problems come up don't hesitate to return to visit us. Please follow up with your primary care provider so they can plan additional care if needed and know about the problem that you had. If symptoms worsen come back to the Emergency Department. Any concerning symptoms that start such as chest pain, shortness of air, weakness or numbness on one side of the body, running high fevers or any other concerning symptoms return to the ER. NUBIA SHIRLEY APRN Apr 06, 2019 17:47 TACHO EMERY MD Apr 07, 2019 17:38
[2019-04-06 17:54] LABS: BASO # 0.1 x10^3/uL (0.0-0.2); BASO % 1 % (0-3); EOS # 0.2 x10^3/uL (0.0-0.7); EOS % 2 % (0-3); HEMOGLOBIN 14.3 g/dL (12.0-15.5); LYMPH # 2.9 x10^3/uL (1.0-4.8); LYMPH % 32 % (24-48); MEAN CORPUSCULAR HEMOGLOBIN 30 pg (25-35); MEAN CORPUSCULAR HGB CONC 35 g/dL (31-37); MEAN CORPUSCULAR VOLUME 85 fL (79-100); MONO # 0.7 x10^3/uL (0.0-1.1); MONO % 7 % (0-9); NEUT # 5.2 x10^3/uL (1.8-7.7); NEUT % 58 % (31-73); PLATELET COUNT 252 x10^3/uL (140-400); RED BLOOD COUNT 4.79 x10^6/uL (3.50-5.40); RED CELL DISTRIBUTION WIDTH 13.7 % (11.5-14.5); WHITE BLOOD COUNT 8.9 x10^3/uL (4.0-11.0)
[2019-04-06 17:59] LABS: BILIRUBIN,URINE NEGATIVE (NEG); CLARITY,URINE CLEAR; NITRITE,URINE NEGATIVE (NEG); PROTEIN,URINE NEGATIVE (NEG-TRACE); UROBILINOGEN,URINE 0.2 mg/dL (0.2 mg/dL)
[2019-04-06 18:06] LABS: COLOR,URINE STRAW
[2019-04-06 18:08] LABS: BACTERIA,URINE FEW /HPF (0-FEW); RBC,URINE 0 /HPF (0-2); SQUAMOUS EPITHELIAL CELL,UR FEW /LPF; WBC,URINE 0 /HPF (0-4)
--- NOTE | 2019-04-06 18:21 | RAD ---
Exam: Chest 2 views INDICATION: Palpitations TECHNIQUE: Frontal and lateral views the chest Comparisons: None FINDINGS: The cardiomediastinal silhouette and pulmonary vessels are within normal limits. The lung and pleural spaces are clear. IMPRESSION: No acute cardiopulmonary process. Electronically signed by: Anika Royal MD (04/06/2019 6:18 PM) [facility]
--- NOTE | 2019-04-06 18:28 | EKG ---
[facility] [address] [place] [address] Test Date: 2019-04-06 Test Time: 18:15:30 Pat Name: MEGHAN BRODY Department: Room: Gender: Female [employer] In[employer]: : 1995 Requested By: NUBIA SHIRLEY Order Number: [id number] Reading MD: Bandar Julian MD Measurements Intervals [place] Rate: 88 P: 27 [place]: 168 QRS: 5 QRSD: 66 T: 30 QT: 370 QTc: 451 Interpretive Statements SINUS RHYTHM SUBTLE LATERAL INJURY PATTERN - CORRELATE WITH HISTORY Electronically Signed On 04-07-2019 18:14:16 CDT by Bandar Julian MD
--- NOTE | 2019-04-06 18:35 | RAD ---
EXAM: CT HEAD WITHOUT CONTRAST. HISTORY: Seizures. TECHNIQUE: Computed tomography of the head was performed without intravenous contrast. COMPARISON: None. FINDINGS: There is no intracranial hemorrhage. Win-white differentiation is preserved. The ventricles are normal in size and position. There is a small mucus retention cyst in the left maxillary sinus. The orbits are unremarkable. The temporal bones are unremarkable. The calvarium reveals no suspicious lesions. IMPRESSION: 1. No acute intracranial findings. MRI is more sensitive if there is persistent concern. *One or more of the following individualized dose reduction techniques were utilized for this examination: 1. Automated exposure control. 2. Adjustment of the mA and/or kV according to patient size. 3. Use of iterative reconstruction technique. Electronically signed by: Jacob Mercado MD (04/06/2019 6:32 PM) [facility]
[2019-04-06 18:53] LABS: CALCIUM 9.2 mg/dL (8.5-10.1); CREATININE 0.9 mg/dL (0.6-1.0); GFR 93.1; POTASSIUM 4.1 mmol/L (3.5-5.1)
[2019-04-06 19:01] LABS: ALBUMIN 4.1 g/dL (3.4-5.0); TOTAL BILIRUBIN 0.4 mg/dL (0.2-1.0); TOTAL PROTEIN 8.1 g/dL (6.4-8.2)
[2019-04-06 20:00] VITALS: BP 123/77
== END 2019-04-06 20:10 | disposition home or self-care (01) ==
LOC: ER 16:31
DX: F41.0 Panic disorder [episodic paroxysmal anxiety] (principal); F32.9 Major depressive disorder, single episode, unspecified; R42 Dizziness and giddiness; R73.09 Other abnormal glucose; Z91.018 Allergy to other foods
CPT/HCPCS: 36415; 70450; 71046; 80053; 81001; 81025; 82962; 83605; 84484; 85025; 93005; 96360; 99285; J7030

== ENCOUNTER → 2019-09-08 | Outpatient (CLI) | payer BC ==
--- NOTE | 2019-09-08 14:27 | RAD ---
EXAM: Nuclear gastric emptying scan. HISTORY: Pain. Nausea and vomiting. COMPARISON: 04/09/2017 TECHNIQUE: Serial static images were obtained over the stomach following oral administration of 2.0 mCi of 99m-Tc sulfur colloid. FINDINGS: The stomach empties into the small bowel without evidence of reflux in the area of the esophagus. The estimated time for half emptying of gastric contents, i.e. 'gastric emptying time' is 140 minutes (normal is 66 +/- 22 minutes). There is 73% retained tracer activity within the stomach at one hour, 54% retained tracer activity within the stomach at 2 hours, 37% retained tracer activity within the stomach at 3 hours, and 17% retained tracer activity within the stomach at 4 hours. IMPRESSION: Delayed gastric emptying. Electronically signed by: Zulema Rodriguez MD (09/08/2019 2:24 PM) [facility]
== END | disposition home or self-care (01) ==
LOC: NM 09:11
PROVIDERS: ATTEND Internal Medicine Gastroenterology
DX: K30 Functional dyspepsia (principal)
CPT/HCPCS: 78264; A9541